=== PATIENT | male | born 1935 | race Caucasian/White ===

== ENCOUNTER 2016-05-08 10:14 | Inpatient (IN) | payer MEDICARE ==
[~2016-05-08] VITALS: Ht 180.3 cm; Wt 96.0 kg
[~2016-05-08 10:14] MED LIST: ADVAIR DISK1 IN; ALAVERT10 MG PO; ALBUTEROL SUL0.083 % IN; ALTOPREV40 MG PO; ASA LOW DOSE81 MG OR; ASPIRIN EC81 MG PO; BACTRIM DS1 TAB OR; BACTRIM DS1 TAB PO; BAYER ASPIRIN E81 MG PO; BENADRYL 50MG C50 MG PO; CIPROFLOXACN500 MG PO; COENZYME Q1010 M1 PO; COMBIVENT IN; COMBIVENT INH; COMBIVENT RESPIMAT IN; COMPRESSOR; COQ-1010 MG PO; ENALAPRIL10 MG OR; ENALAPRIL20 MG PO; GREEN COFFEE B400 MG PO; HYDROCHLOR12.5 MG/CA PO; HYDROCHLORO25 MG/TAB PO; HYDROCHLOROT12.5 MG PO; KEFLEX500 MG PO; LORATADINE OR; LORATADINE10 M1 PO; LOTRISONE TOP; LOVASTATIN10 MG PO; LOVASTATIN20 M1 PO; LOVASTATIN20 MG PO; Levaquin PO; MEDDOSEPAK PO; NAC 600 PO; NEBULIZE1 XX; PERCOCET 5/325M1 TAB PO; PREDNISONE20 MG PO; PRESERVISION AREDS 2; PRESERVISION PO; PROAIR HFA IN; PROBIOTI1 PO; PROVENTIL IN; SINGULAIR 10 MG10 MG PO; SINGULAIR OR; SINGULAIR10 MG PO; VIRTUSSIN A/C 11 SOL PO; ZITHROMAX250 MG PO; ZPAK PO; ZYRTEC10 MG PO; [UNRECOGNIZED DRUG - OTHER] OR; [UNRECOGNIZED DRUG - OTHER] PO; [UNRECOGNIZED DRUG - OTHER] PO; [UNRECOGNIZED DRUG - SUPPLY] XX
[2016-05-08 10:30] VITALS: BP 141/59
--- NOTE | 2016-05-08 10:30 | NUR ---
DIRECT ADMIT PT ARRIVED ON UNIT VIA WC ACCOMPANIED BY SPOUSE, ALERT AND ORIENTED X 3, ORIENTED TO ROOM AND CALL ZHOU, SETTLED IN BED, HUMIDIFIED O2 @ 3L PLACED VIA NC, TELE MONITOR PLANJOÃO, SPOUSE AT BEDSIDE, CALL ZHOU IN REACH.
[2016-05-08 11:21] LABS: URINE BILIRUBIN - DIPSTICK NEGATIVE (NEGATIVE); URINE BLOOD DIPSTICK TRACE-INTACT (NEGATIVE); URINE CLARITY SLIGHT CLOUDY; URINE COLOR YELLOW; URINE GLUCOSE - DIPSTICK NEGATIVE (NEGATIVE); URINE KETONE NEGATIVE (NEGATIVE); URINE LEUK ESTERASE NEGATIVE (Negative); URINE NITRITE - DIPSTICK NEGATIVE (Negative); URINE PROTEIN - DIPSTICK >=300 mg/dL (NEG-TRACE); URINE RBC 0-2 RBC/hpf (0-5); URINE SPECIFIC GRAVITY 1.015; URINE UROBILINOGEN - DIPSTICK 0.2 E.U./dL (0.2)
[2016-05-08 11:22] LABS: URINE MUCUS MODERATE hpf (NONE-FEW)
[2016-05-08 12:31] LABS: HEMATOCRIT 33.2 % (39.0-50.0); HEMOGLOBIN 11.2 g/dl (14.0-18.0); IMMATURE GRANULOCYTES 0.6 % (0.0-1.0); MEAN CORPUSCULAR HGB CONC 33.7 g/L CALC (32.0-36.0); NEUT# 8.03 thou/uL (1.82-7.42); RED BLOOD COUNT 3.73 mill/uL (4.70-6.10); RED CELL DISTRI WIDTH 13.9 % (11.5-15.5)
[2016-05-08 12:58] LABS: CALCIUM 9.5 mg/dL (8.4-10.2); CREATININE 1.6 mg/dL (0.7-1.3); POTASSIUM 4.9 mmol/l (3.5-5.1)
[2016-05-08 16:13] VITALS: BP 150/76
--- NOTE | 2016-05-08 20:08 | NUR ---
BEDSIDE REPORT RECEIVED FROM RENETTA TOLEDO. PT CURRENTLY UP TO CHAIR. C/O SORE THROAT RELATED TO COUGHING. RESPIRATIONS EVEN AND UNLABORED. NEW ORDER FOR CHORASEPTIC URIAH, PT GIVEN ONE AT THIS TIME. AT BEDSIDE. PLAN OF CARE DISCUSSED. ENCOURAGED TO VERBALIZE CONCERNS. STATES UNDERSTANDING. SAFETY MEASURES IN PLACE. CALL LIGHT SYSTEM REVIEWED AND IN REACH.
[2016-05-08 20:44] VITALS: BP 162/88
--- NOTE | 2016-05-09 00:40 | NUR ---
PT SITTING UP IN CHAIR WATCHING TV AT THIS TIME. DENIES PAIN. RESPIRATIONS EVEN AND UNLABORED. BLOOD PRESSURE ELEVATED, WILL CONTINUE TO MONITOR. PT ASYMPTOMATIC. SAFETY MEASURES IN PLACE. CALL LIGHT WITHIN REACH.
[2016-05-09 01:00] VITALS: BP 100/60; BP 160/78
[2016-05-09 04:00] VITALS: BP 174/83
--- NOTE | 2016-05-09 04:16 | NUR ---
PT AWAKE AT THIS TIME UP IN CHAIR WATCHING TV. IV FLUIDS INFUSING ADEQUATELY. SITE APPEARS HEALTHY. PT DENIES PAIN AND SOB. HAS NO REQUESTS AT THIS TIME. SAFETY MEASURES REMAIN IN PLACE. CALL LIGHT WITHIN REACH.
--- NOTE | 2016-05-09 07:00 | NUR ---
BEDSIDE REPORT RECIEVED FROM MANDA BRUCE; PT SITTING UP IN CHAIR AT BEDSIDE; NO S/S OF DISTRESS NOTED; PT DENIES ANY NEEDS AT THIS TIME; IVF INFUSING TO #22 TO LAC; IV SITE APPEARS HEALTHY AT THIS TIME; PT ENCOURAGED TO CALL FOR ANY ASSISTANCE NEEDED; CALL LIGHT WTIHIN REACH; WILL CONTINUE TO MONITOR
[2016-05-09 08:15] VITALS: BP 158/75
[2016-05-09 10:59] VITALS: BP 167/77
[2016-05-09 11:25] LABS: HEMATOCRIT 32.4 % (39.0-50.0); HEMOGLOBIN 11.1 g/dl (14.0-18.0); IMMATURE GRANULOCYTES 0.9 % (0.0-1.0); MEAN CELL VOLUME 87.6 fL CALC (80.0-100.0); MEAN CORPUSCULAR HGB CONC 34.3 g/L CALC (32.0-36.0); NEUT# 11.35 thou/uL (1.82-7.42); RED BLOOD COUNT 3.7 mill/uL (4.70-6.10); RED CELL DISTRI WIDTH 13.6 % (11.5-15.5)
[2016-05-09 11:40] LABS: CALCIUM 9.5 mg/dL (8.4-10.2); CREATININE 1.4 mg/dL (0.7-1.3); POTASSIUM 4.3 mmol/l (3.5-5.1)
--- NOTE | 2016-05-09 11:58 | NUR ---
PT SITTING UP IN CHAIR AT BEDSIDE; NO S/S OF DISTRESS NOTED; IV ROCEPHIN INFUSING TO #22 TO LAC; IV SITE APPEARS HEALTHY; O2 NC IN PLACE; SPOUSE AT BEDSIDE; PT DENIES ANY NEEDS AT THIS TIME; CALL LIGHT WITHIN REACH; WILL CONTINUE TO MONITOR
[2016-05-09 15:45] VITALS: BP 147/71
--- NOTE | 2016-05-09 16:58 | NUR ---
PT SITTING UP IN CHAIR AT BEDSIDE; NO S/S OF DISTRESS NOTED; IVF INFUSING AT PRESCRIBED RATE; PT DENIES ANY NEEDS AT THIS TIME; CALL LIGHT WITHIN REACH; WILL CONTINUE TO MONITOR
--- NOTE | 2016-05-09 19:17 | NUR ---
BEDSIDE REPORT RECEIVED FROM RENETTA ROBERSON. PT SITTING UP IN CHAIR WATCHING TV. DENIES PAIN. RESPIRATIONS EVEN AND UNLABORED. O2 AT 2L VIA NC IN PLACE FOR SOB WITH EXERTION TO BATHROOM. PLAN OF CARE DISCUSSED. ENCOURAGED TO VERBALIZE CONCERNS. PT STATES UNDERSTANDING. SAFETY MEASURES IN PLACE. CALL LIGHT WITHIN REACH.
[2016-05-09 20:10] VITALS: BP 139/69
--- NOTE | 2016-05-10 | NUR ---
PT ASLEEP IN CHAIR AT THIS TIME. NO SIGNS OF PAIN/DISTRESS; RESPIRATIONS EVEN AND UNLABORED WITH O2 IN PLACE AT 2L. SAFEY MEASURES IN PLACE. CALL LIGHT WITHIN REACH.
[2016-05-10 04:00] VITALS: BP 148/78
[2016-05-10 06:00] LABS: ALBUMIN 3.6 g/dL (3.2-5.0); BILIRUBIN, TOTAL 0.2 mg/dL (0.0-1.4); CALCIUM 9.2 mg/dL (8.4-10.2); CREATININE 1.4 mg/dL (0.7-1.3); POTASSIUM 4.7 mmol/l (3.5-5.1); TOTAL PROTEIN 6.2 g/dL (6.3-8.2)
[2016-05-10 06:04] LABS: HEMATOCRIT 29.4 % (39.0-50.0); HEMOGLOBIN 10.2 g/dl (14.0-18.0); IMMATURE GRANULOCYTES 0.9 % (0.0-1.0); MEAN CORPUSCULAR HGB 30.2 pG CALC (26.0-32.0); MEAN CORPUSCULAR HGB CONC 34.7 g/L CALC (32.0-36.0); NEUT# 14.6 thou/uL (1.82-7.42); RED BLOOD COUNT 3.38 mill/uL (4.70-6.10); RED CELL DISTRI WIDTH 13.6 % (11.5-15.5)
--- NOTE | 2016-05-10 07:00 | NUR ---
REPORT RECIEVED FROM MANDA BRUCE; PT RESTING IN CHAIR WITH EYES CLOSED; IVF INFUSING AT PRESCRIBED RATE; NO S/S OF DISTRESS NOTED; CALL LIGHT WITHIN REACH; WILL CONTINUE TO MONITOR
[2016-05-10 08:41] VITALS: BP 141/71
--- NOTE | 2016-05-10 11:39 | NUR ---
PT SITTING UP IN CHAIR AT BEDSIDE; NO S/S OF DISTRESS NOTED; O2 NC IN PLACE; PT DENIES ANY NEEDS AT THIS TIME; IV ROCEPHIN STARTED AT THIS TIME TO #20 TO LAC; IV SITE APPEARS HEALTHY AT THIS TIME; SPOUSE AT BEDSIDE; NO S/S OF DISTRESS NOTED; CALL LIGHT WITHIN REACH; WILL CONTINUE TO MONITOR
[2016-05-10 12:54] VITALS: BP 133/51
[2016-05-10 15:56] VITALS: BP 152/64
[2016-05-10] MEDS ORDERED: HYDROCHLOR12.5 MG/CA PO (17:35)
[2016-05-10] MEDS ORDERED: VENTOLIN HFA IN (17:35)
[2016-05-10] MEDS ORDERED: PROBIOTIC250 MG PO (17:35)
[2016-05-10] MEDS ORDERED: VIRTUSSIN A/C 11 SOL PO (17:35)
[2016-05-10] MEDS ORDERED: Levaquin PO ×2 (17:35)
[2016-05-10] MEDS ORDERED: PREDNISONE20 MG PO ×2 (17:35)
[2016-05-10] MEDS ORDERED: ADVAIR DISK1 IN (17:35)
[2016-05-10] MEDS ORDERED: ENALAPRIL20 MG PO (17:35)
[2016-05-10] MEDS ORDERED: [UNRECOGNIZED DRUG - OTHER] PO (17:35)
[2016-05-10] MEDS ORDERED: PROAIR HFA IN (17:35)
[2016-05-10] MEDS ORDERED: ASPIRIN EC81 MG PO (17:35)
[2016-05-10] MEDS ORDERED: LOVASTATIN20 M1 PO (17:35)
[2016-05-10] MEDS ORDERED: SINGULAIR10 MG PO (17:35)
[2016-05-10] MEDS ORDERED: ALPRAZOLAM0.5 MG PO (17:40)
--- NOTE | 2016-05-10 18:23 | NUR ---
Discharge instructions given. Patient verbalizes understanding of same. Discharged in stable condition via Wheelchair to Home with family. All belongings sent with pt.
== END 2016-05-10 18:10 | disposition home or self-care (01) | DRG 192 ==
LOC: ENPENDDIS → MS2 10:14
PROVIDERS: ADMIT Internal Medicine Geriatric Medicine; ATTEND Internal Medicine Geriatric Medicine
DX: J44.1 Chronic obstructive pulmonary disease with (acute) exacerbation (principal); N18.3 Chronic kidney disease, stage 3 (moderate); I12.9 Hypertensive chronic kidney disease with stage 1 through stage 4 chronic kidney disease, or unspecified chronic kidney disease; I25.10 Atherosclerotic heart disease of native coronary artery without angina pectoris; E78.5 Hyperlipidemia, unspecified; K21.9 Gastro-esophageal reflux disease without esophagitis; M19.90 Unspecified osteoarthritis, unspecified site; F41.9 Anxiety disorder, unspecified; M10.9 Gout, unspecified

== ENCOUNTER 2016-07-31 10:24 | Emergency (ER) | payer MEDICARE ==
[~2016-07-31] VITALS: Ht 180.3 cm; Wt 111.0 kg
[~2016-07-31 10:24] MED LIST changes: +ALPRAZOLAM0.5 MG PO; +PROBIOTIC250 MG PO; +VENTOLIN HFA IN
[2016-07-31] MEDS ORDERED: ZYRTEC10 MG PO (10:51)
[2016-07-31] MEDS ORDERED: LASIX 20 MG TAB20 MG PO (10:52)
[2016-07-31] MEDS ORDERED: KLOR-CON 1010 MEQ PO (10:53)
[2016-07-31] MEDS ORDERED: CARAFATE1 GM PO (10:54)
[2016-07-31] MEDS ORDERED: IPRATROPIU0.5 MG/3 M IN (10:55)
[2016-07-31] MEDS ORDERED: PANTOPRAZOLE SO40 M1 PO (10:55)
[2016-07-31 11:10] VITALS: BP 156/69
== END 2016-07-31 11:10 | disposition home or self-care (01) ==
LOC: ED 10:24
DX: S40.812A Abrasion of left upper arm, initial encounter (principal); S51.812A Laceration without foreign body of left forearm, initial encounter; W22.8XXA Striking against or struck by other objects, initial encounter; Y93.89 Activity, other specified; Y92.007 Garden or yard of unspecified non-institutional (private) residence as the place of occurrence of the external cause

== ENCOUNTER 2016-08-03 08:43 | Emergency (ER) | payer MEDICARE ==
[~2016-08-03] VITALS: Ht 180.3 cm; Wt 100.0 kg
[~2016-08-03 08:43] MED LIST changes: +CARAFATE1 GM PO; +IPRATROPIU0.5 MG/3 M IN; +KLOR-CON 1010 MEQ PO; +LASIX 20 MG TAB20 MG PO; +PANTOPRAZOLE SO40 M1 PO
[2016-08-03 09:10] VITALS: BP 153/71
== END 2016-08-03 09:10 | disposition home or self-care (01) ==
LOC: ED 08:43
DX: S51.802D Unspecified open wound of left forearm, subsequent encounter (principal); X58.XXXD Exposure to other specified factors, subsequent encounter; J44.9 Chronic obstructive pulmonary disease, unspecified; I10 Essential (primary) hypertension; I25.2 Old myocardial infarction; Z95.1 Presence of aortocoronary bypass graft; M19.90 Unspecified osteoarthritis, unspecified site

== ENCOUNTER → 2018-03-26 | Outpatient (REF) | payer MEDICARE ==
[2018-03-26 09:23] LABS: HEMATOCRIT 34.9 % (39.0-50.0); HEMOGLOBIN 11.3 g/dl (14.0-18.0); IMMATURE GRANULOCYTES 0.4 % (0.0-5.0); MEAN CELL VOLUME 95.9 fL CALC (80.0-100.0); MEAN CORPUSCULAR HGB CONC 32.4 g/L CALC (32.0-36.0); NEUT# 4.68 thou/uL (1.82-7.42); RED BLOOD COUNT 3.64 mill/uL (4.70-6.10)
[2018-03-26 09:40] LABS: ALBUMIN 4.2 g/dL (3.2-5.0); BILIRUBIN, TOTAL 0.3 mg/dL (0.0-1.4); CHOLESTEROL HDL RATIO 5.3 (<4.4 (CALC)); POTASSIUM 4.8 mmol/l (3.5-5.1); TOTAL PROTEIN 6.7 g/dL (6.3-8.2)
== END | disposition home or self-care (01) ==
LOC: LAB 06:57
PROVIDERS: ATTEND Internal Medicine Geriatric Medicine
DX: I10 Essential (primary) hypertension (principal); E78.2 Mixed hyperlipidemia

== ENCOUNTER → 2018-04-13 | Outpatient (REF) | payer MEDICARE ==
[2018-04-13 08:17] LABS: ALBUMIN 4.1 g/dL (3.2-5.0); CREATININE 2.8 mg/dL (0.7-1.3); POTASSIUM 4.8 mmol/l (3.5-5.1)
== END | disposition home or self-care (01) ==
LOC: LAB 07:06
PROVIDERS: ATTEND Internal Medicine Nephrology
DX: N18.4 Chronic kidney disease, stage 4 (severe) (principal)

== ENCOUNTER 2018-06-05 08:26 | Emergency (ER) | payer MEDICARE ==
[~2018-06-05] VITALS: Ht 180.3 cm; Wt 100.0 kg
[2018-06-05] MEDS ORDERED: ERYTHROMYCIN O3.5 GM OU (09:44)
[2018-06-05] MEDS ORDERED: ACULAR LS0.4 % OD (09:44)
[2018-06-05 09:55] VITALS: BP 177/83
== END 2018-06-05 09:55 | disposition home or self-care (01) ==
LOC: ED 08:26
DX: H00.012 Hordeolum externum right lower eyelid (principal); I12.9 Hypertensive chronic kidney disease with stage 1 through stage 4 chronic kidney disease, or unspecified chronic kidney disease; N18.4 Chronic kidney disease, stage 4 (severe); J44.9 Chronic obstructive pulmonary disease, unspecified

== ENCOUNTER 2018-09-16 20:28 | Observation (INO) | payer MEDICARE ==
[~2018-09-16] VITALS: Ht 180.3 cm; Wt 102.5 kg
[~2018-09-16 20:28] MED LIST changes: +ACULAR LS0.4 % OD; +ERYTHROMYCIN O3.5 GM OU
--- NOTE | 2018-09-16 20:29 | NUR ---
PT WHEELED TO ROOM # 12 FOR BEDSIDE TRIAGE.
--- NOTE | 2018-09-16 20:45 | NUR ---
TO ROOM. TRIAGED. EKG COMPLETED. AT BEDSIDE. AT BEDSIDE.
--- NOTE | 2018-09-16 21:15 | NUR ---
IV STARTED/LABS DRAWN.
[2018-09-16 21:26] LABS: HEMATOCRIT 29.3 % (39.0-50.0); HEMOGLOBIN 9.6 g/dl (14.0-18.0); IMMATURE GRANULOCYTES 0.3 % (0.0-5.0); MEAN CELL VOLUME 96.1 fL CALC (80.0-100.0); MEAN CORPUSCULAR HGB 31.5 pG CALC (26.0-32.0); MEAN CORPUSCULAR HGB CONC 32.8 g/L CALC (32.0-36.0); NEUT# 5.38 thou/uL (1.82-7.42); RED BLOOD COUNT 3.05 mill/uL (4.70-6.10); RED CELL DISTRI WIDTH 13.2 % (11.5-15.5)
[2018-09-16 21:38] LABS: ALBUMIN 3.9 g/dL (3.2-5.0); ALKALINE PHOSPHATASE 67 u/l (38-126); ANION GAP 15 (6-22 (CALC)); BILIRUBIN, TOTAL 0.2 mg/dL (0.0-1.4); BUN 64 mg/dL (8-23); BUN/CREATININE RATIO 19 (12-20 (CALC)); CARBON DIOXIDE 24 mmol/l (22-30); CHLORIDE 105 mmol/l (95-108); CREATININE 3.3 mg/dL (0.7-1.3); GFR 18 ML/MIN (>=60 (CALC)); GFR FOR AFR.AMER. 22 ML/MIN (>=60 (CALC)); SGOT/AST 16 u/l (19-48); SODIUM 139 mmol/l (137-146); TOTAL PROTEIN 6.4 g/dL (6.3-8.2)
[2018-09-16 21:46] LABS: POTASSIUM 5.3 mmol/l (3.5-5.1)
[2018-09-16] MEDS ORDERED: ASPIRIN81 MG PO (21:49)
[2018-09-16 21:50] LABS: MYOGLOBIN 169 ng/mL (0 - 121)
[2018-09-16] MEDS ORDERED: CLONIDINE0.1 MG PO (21:52)
[2018-09-16] MEDS ORDERED: CARVEDILOL6.25 MG PO (21:58)
[2018-09-16] MEDS ORDERED: AVAPRO150 MG PO (21:59)
[2018-09-16] MEDS ORDERED: VENTOLIN HFA IN (21:59)
[2018-09-16] MEDS ORDERED: MUCINEX600 MG PO (22:00)
[2018-09-16] MEDS ORDERED: NASACORT A55 MCG/ACT IN (22:01)
[2018-09-16] MEDS ORDERED: [UNRECOGNIZED DRUG - OTHER] PO (22:03)
[2018-09-16] MEDS ORDERED: PRESERVISION PO (22:04)
[2018-09-16 23:23] LABS: URINE BILIRUBIN - DIPSTICK NEGATIVE (NEGATIVE); URINE BLOOD DIPSTICK NEGATIVE (NEGATIVE); URINE COLOR YELLOW; URINE GLUCOSE - DIPSTICK NEGATIVE (NEGATIVE); URINE KETONE NEGATIVE (NEGATIVE); URINE LEUK ESTERASE NEGATIVE (NEGATIVE); URINE NITRITE - DIPSTICK NEGATIVE (Negative); URINE PROTEIN - DIPSTICK 100 mg/dL (NEG-TRACE); URINE SPECIFIC GRAVITY 1.015; URINE UROBILINOGEN - DIPSTICK 0.2 E.U./dL (0.2)
[2018-09-16 23:24] LABS: URINE EPITHELIAL CELLS FEW EPI/hpf (0-FEW); URINE MUCUS FEW hpf (NONE-FEW)
--- NOTE | 2018-09-16 23:25 | NUR ---
ADVISED OF HR OF 52....OK TO GIVE.
[2018-09-17] VITALS (8 sets, daily range): BP systolic 133–172; BP diastolic 54–78
--- NOTE | 2018-09-17 00:05 | NUR ---
REPORT TO SESAR, ICU
--- NOTE | 2018-09-17 00:25 | NUR ---
TO ICU OVERFLOW WITH PORTABLE MONITOR. PT FEELS BETTER. AMBULATORY FROM STRETCHER TO BED WITH ASSIST.
--- NOTE | 2018-09-17 00:40 | NUR ---
PT ARRIVED VIA STRETCHER ACCOMPAINED BY ER STAFF. PT ALERT AND ORIENTED. PT AMBULATED FROM STRETCHER TO BED WITH STEADY GAIT. SOB WITH EXCERTION. O2 SAT 96% RA. PT STATES PAIN IN CHEST STILL PRESENT BUT BETTER THAN WHEN HE ARRIVED TO ER. IV SITE APPEARS HEALTHY. SKIN INTACT. DISCUSSED POC AND ORIENTED TO ROOM AND CALL LIGHT SYSTEM. PT VERBALIZED UNDERSTANDING. CALL LIGHT WITHIN REACH. WILL CONTINUE TO MONITOR.
--- NOTE | 2018-09-17 04:04 | NUR ---
PT UP AT BEDSIDE VOIDED 400ML CLEAR YELLOW URINE IN URINAL. PT DENIES ANY PAIN OR DISCOMFORT. NO DISTRESS NOTED. PT REQUEST TO SIT UP ON SIDE OF BED AT THIS TIME. CALL LIGHT WITHIN REACH. WILL CONTINUE TO MONITOR.
[2018-09-17 04:49] LABS: CHOLESTEROL HDL RATIO 5.5 (<4.4 (CALC))
--- NOTE | 2018-09-17 07:30 | NUR ---
PT RESTING IN BED, ASSISTED OUT OF BED, PT USED URINAL. NO SIGNS OF DISTRESS NOTED, RESP EVEN AND UNLABORED.DISCUSSED POC, ASSESSMENT COMPLETED, VOICES NO NEEDS OR COMPLAINTS AT THIS TIME. CALL LIGHT IN REACH,CONTINUE TO MONITOR.
--- NOTE | 2018-09-17 08:16 | NUR ---
PT SITTING IN CHAIR AT BEDSIDE AT BEDSIDE. PT VOICES NO NEEDS OR COMPLAINTS AT THIS TIME. CALL LIGHT IN REACH, CONTINUE TO MONITOR.
--- NOTE | 2018-09-17 09:37 | NUR ---
PT MEDICATED PER EMAR, PT C/O HEADACHE, NITRO PASTE REMOVED. CONTINUE TO MONITOR.
--- NOTE | 2018-09-17 11:00 | NUR ---
PT SITTING IN CHAIR, VOICES NO NEEDS OR COMPLAINTS. CALL LIGHT IN REACH,CONTINUE TO MONITOR.
--- NOTE | 2018-09-17 13:00 | NUR ---
IV site discontinued, cath intact. No edema , no redness, voices no discomfort.
--- NOTE | 2018-09-17 14:00 | NUR ---
Discharge instructions given. Patient verbalizes understanding of same. Discharged in stable condition via Wheelchair to Home with spouse. All belongings sent with pt.
== END 2018-09-17 14:00 | disposition home or self-care (01) ==
LOC: ED 20:28 → ED-I 22:13 → ED 23:48 → ICU 23:49
PROVIDERS: Emergency Medicine; ADMIT Internal Medicine; ATTEND Internal Medicine
DX: R07.9 Chest pain, unspecified (principal); I16.0 Hypertensive urgency; I12.9 Hypertensive chronic kidney disease with stage 1 through stage 4 chronic kidney disease, or unspecified chronic kidney disease; N18.4 Chronic kidney disease, stage 4 (severe); J44.9 Chronic obstructive pulmonary disease, unspecified; I25.10 Atherosclerotic heart disease of native coronary artery without angina pectoris; N40.0 Benign prostatic hyperplasia without lower urinary tract symptoms; Z95.1 Presence of aortocoronary bypass graft; Z87.891 Personal history of nicotine dependence

== ENCOUNTER 2019-09-08 11:55 | Emergency (ER) | payer OTHER, MEDICARE ==
[~2019-09-08] VITALS: Ht 180.3 cm; Wt 93.0 kg
[~2019-09-08 11:55] MED LIST changes: +ASPIRIN81 MG PO; +AVAPRO150 MG PO; +BUMETANIDE1 MG PO; +CARVEDILOL6.25 MG PO; +CLONIDINE0.1 MG PO; +COREG12.5 MG PO; +MUCINEX600 MG PO; +NASACORT A55 MCG/ACT IN; +VENTOLIN H108 MCG/AC IN; +[UNRECOGNIZED DRUG - OTHER] PO
[2019-09-08 12:52] LABS: HEMATOCRIT 35.3 % (39.0-50.0); HEMOGLOBIN 10.7 g/dl (14.0-18.0); IMMATURE GRANULOCYTES 0.3 % (0.0-5.0); MEAN CELL VOLUME 99.7 fL CALC (80.0-100.0); MEAN CORPUSCULAR HGB 30.2 pG CALC (26.0-32.0); MEAN CORPUSCULAR HGB CONC 30.3 g/dL CAL (32.0-36.0); NEUT# 3.88 thou/uL (1.82-7.42); RED BLOOD COUNT 3.54 mill/uL (4.70-6.10); RED CELL DISTRI WIDTH 15.7 % (11.5-15.5)
[2019-09-08 13:06] LABS: ALBUMIN 3.8 g/dL (3.2-5.0); ALKALINE PHOSPHATASE 81 u/l (38-126); BILIRUBIN, TOTAL 0.3 mg/dL (0.0-1.4); BUN 76 mg/dL (8-23); BUN/CREATININE RATIO 22 (12-20 (CALC)); CARBON DIOXIDE 17 mmol/l (22-30); CHLORIDE 109 mmol/l (95-108); CREATININE 3.4 mg/dL (0.7-1.3); GFR 17 ML/MIN (>=60 (CALC)); GFR FOR AFR.AMER. 21 ML/MIN (>=60 (CALC)); LIPASE 254 u/l (23-300); SGOT/AST 24 u/l (19-48); SODIUM 135 mmol/l (137-146); TOTAL PROTEIN 6.2 g/dL (6.3-8.2)
[2019-09-08 13:07] LABS: ANION GAP 15 (6-22 (CALC)); POTASSIUM 5.7 mmol/l (3.5-5.1)
[2019-09-08 14:01] LABS: URINE BILIRUBIN - DIPSTICK NEGATIVE (NEGATIVE); URINE BLOOD DIPSTICK TRACE-INTACT (NEGATIVE); URINE COLOR YELLOW; URINE EPITHELIAL CELLS MODERATE EPI/hpf (0-FEW); URINE GLUCOSE - DIPSTICK NEGATIVE (NEGATIVE); URINE KETONE NEGATIVE (NEGATIVE); URINE LEUK ESTERASE NEGATIVE (NEGATIVE); URINE MUCUS MODERATE hpf (NONE-FEW); URINE NITRITE - DIPSTICK NEGATIVE (Negative); URINE PROTEIN - DIPSTICK 100 mg/dL (NEG-TRACE); URINE RBC 0-2 RBC/hpf (0-5); URINE UROBILINOGEN - DIPSTICK 0.2 E.U./dL (0.2)
[2019-09-08] MEDS ORDERED: KAYEXALATE15 GM/60 M PO (14:42)
[2019-09-08 15:11] VITALS: BP 182/75
[2019-09-09] MEDS ORDERED: ROSUVASTATIN CA20 MG PO (15:44)
[2019-09-09] MEDS ORDERED: WIXELA INHUB 251 AER PO (15:44)
[2019-09-09] MEDS ORDERED: MONTELUKAST SOD10 MG PO (15:45)
== END 2019-09-08 15:11 | disposition home or self-care (01) | DRG 392 ==
LOC: ED 11:55
PROVIDERS: Family Medicine
DX: R10.32 Left lower quadrant pain (principal); S00.01XA Abrasion of scalp, initial encounter; S00.81XA Abrasion of other part of head, initial encounter; M54.2 Cervicalgia; M54.6 Pain in thoracic spine; E87.5 Hyperkalemia; I12.9 Hypertensive chronic kidney disease with stage 1 through stage 4 chronic kidney disease, or unspecified chronic kidney disease; N18.3 Chronic kidney disease, stage 3 (moderate); J44.9 Chronic obstructive pulmonary disease, unspecified; V44.5XXA Car driver injured in collision with heavy transport vehicle or bus in traffic accident, initial encounter; Z95.1 Presence of aortocoronary bypass graft

== ENCOUNTER 2019-09-09 15:06 | Emergency (ER) | payer OTHER, MEDICARE ==
[~2019-09-09] VITALS: Ht 180.3 cm; Wt 93.0 kg
[~2019-09-09 15:06] MED LIST changes: +KAYEXALATE15 GM/60 M PO
[2019-09-09] MEDS ORDERED: WIXELA INHUB 251 AER PO (15:44)
[2019-09-09] MEDS ORDERED: ROSUVASTATIN CA20 MG PO (15:44)
[2019-09-09] MEDS ORDERED: MONTELUKAST SOD10 MG PO (15:45)
[2019-09-09 16:02] LABS: CREATININE 3.5 mg/dL (0.7-1.3)
[2019-09-09 16:15] LABS: POTASSIUM 5.5 mmol/l (3.5-5.1)
[2019-09-09 17:25] VITALS: BP 193/82
== END 2019-09-09 17:25 | disposition home or self-care (01) | DRG 641 ==
LOC: ED 15:06
PROVIDERS: Student in an Organized Health Care Education/Training Program
DX: E87.5 Hyperkalemia (principal); I12.9 Hypertensive chronic kidney disease with stage 1 through stage 4 chronic kidney disease, or unspecified chronic kidney disease; N18.3 Chronic kidney disease, stage 3 (moderate); J44.9 Chronic obstructive pulmonary disease, unspecified; Z95.1 Presence of aortocoronary bypass graft

== ENCOUNTER 2020-06-16 08:53 | Emergency (ER) | payer MEDICARE ==
[~2020-06-16 08:53] MED LIST changes: +MONTELUKAST SOD10 MG PO; +ROSUVASTATIN CA20 MG PO; +WIXELA INHUB 251 AER PO
[2020-06-16 09:48] LABS: HEMATOCRIT 31.6 % (39.0-50.0); HEMOGLOBIN 9.9 g/dl (14.0-18.0); IMMATURE GRANULOCYTES 0.4 % (0.0-5.0); MEAN CELL VOLUME 97.2 fL CALC (80.0-100.0); MEAN CORPUSCULAR HGB 30.5 pG CALC (26.0-32.0); MEAN CORPUSCULAR HGB CONC 31.3 g/dL CAL (32.0-36.0); NEUT# 4.97 thou/uL (1.82-7.42); RED BLOOD COUNT 3.25 mill/uL (4.70-6.10); RED CELL DISTRI WIDTH 14.4 % (11.5-15.5)
[2020-06-16 10:06] LABS: ALBUMIN 3.7 g/dL (3.2-5.0); ALKALINE PHOSPHATASE 65 u/l (38-126); ANION GAP 15 (6-22 (CALC)); CARBON DIOXIDE 21 mmol/l (22-30); CHLORIDE 105 mmol/l (95-108); CREATININE 4.3 mg/dL (0.7-1.3); GFR 13 ML/MIN (>=60 (CALC)); GFR FOR AFR.AMER. 16 ML/MIN (>=60 (CALC)); POTASSIUM 4.1 mmol/l (3.5-5.1); SGOT/AST 19 u/l (19-48); SODIUM 137 mmol/l (137-146); TOTAL PROTEIN 6.7 g/dL (6.3-8.2)
[2020-06-16 10:10] LABS: INTERNATIONAL NORMALIZED RATIO 1.1 RATIO (0.7-1.3); PROTHROMBIN TIME 10.8 SECONDS (9.0-12.5)
[2020-06-16 10:11] LABS: BILIRUBIN, TOTAL 0.5 mg/dL (0.0-1.4); BUN 80 mg/dL (8-23); BUN/CREATININE RATIO 19 (12-20 (CALC))
[2020-06-16 10:37] LABS: TSH, 3RD GENERATION 1.89 uIU/mL (0.47 - 4.68)
[2020-06-16 11:28] LABS: URINE BILIRUBIN - DIPSTICK NEGATIVE (NEGATIVE); URINE BLOOD DIPSTICK NEGATIVE (NEGATIVE); URINE COLOR YELLOW; URINE GLUCOSE - DIPSTICK NEGATIVE (NEGATIVE); URINE KETONE NEGATIVE (NEGATIVE); URINE LEUK ESTERASE TRACE (NEGATIVE); URINE PH 5.5 (4.5-8.0); URINE PROTEIN - DIPSTICK >=300 mg/dL (NEG-TRACE); URINE SPECIFIC GRAVITY >=1.030; URINE UROBILINOGEN - DIPSTICK 0.2 E.U./dL (0.2)
[2020-06-16 11:30] LABS: URINE NITRITE - DIPSTICK NEGATIVE (Negative)
[2020-06-16 11:37] LABS: URINE RBC 0-2 RBC/hpf (0-5)
[2020-06-16] MEDS ORDERED: ALTOPREV20 MG PO (11:51)
[2020-06-16] MEDS ORDERED: ADVAIR DISK1 INH (11:52)
[2020-06-16] MEDS ORDERED: HYDRALAZINE10 M2 PO (11:52)
[2020-06-16] MEDS ORDERED: MUCINEX600 MG PO (11:53)
[2020-06-16] MEDS ORDERED: NASACORT A55 MCG/ACT (11:54)
[2020-06-16] MEDS ORDERED: SODIUM BICARBI650 MG PO (11:54)
[2020-06-16] MEDS ORDERED: PRESERVISION PO (11:55)
[2020-06-16 12:06] VITALS: BP 166/71
== END 2020-06-16 12:14 | disposition home or self-care (01) ==
LOC: ED 08:53
PROVIDERS: Family Medicine
DX: R53.1 Weakness (principal); I12.9 Hypertensive chronic kidney disease with stage 1 through stage 4 chronic kidney disease, or unspecified chronic kidney disease; N18.4 Chronic kidney disease, stage 4 (severe); J44.9 Chronic obstructive pulmonary disease, unspecified; Z95.1 Presence of aortocoronary bypass graft; Z20.822 Contact with and (suspected) exposure to COVID-19

== ENCOUNTER 2020-12-24 11:23 | Emergency (ER) | payer MEDICARE ==
[~2020-12-24] VITALS: Ht 180.3 cm; Wt 90.6 kg
[~2020-12-24 11:23] MED LIST changes: +ADVAIR DISK1 INH; +ALTOPREV20 MG PO; +HYDRALAZINE10 M2 PO; +NASACORT A55 MCG/ACT; +SODIUM BICARBI650 MG PO
[2020-12-24 12:13] LABS: HEMATOCRIT 32.6 % (39.0-50.0); HEMOGLOBIN 9.9 g/dl (14.0-18.0); IMMATURE GRANULOCYTES 0.7 % (0.0-5.0); MEAN CELL VOLUME 100.3 fL CALC (80.0-100.0); MEAN CORPUSCULAR HGB 30.5 pG CALC (26.0-32.0); MEAN CORPUSCULAR HGB CONC 30.4 g/dL CAL (32.0-36.0); NEUT# 4.39 thou/uL (1.82-7.42); RED BLOOD COUNT 3.25 mill/uL (4.70-6.10); RED CELL DISTRI WIDTH 16.1 % (11.5-15.5)
[2020-12-24] MEDS ORDERED: RENAGEL 800MG800 MG PO (13:11)
[2020-12-24] MEDS ORDERED: DOXYCYCL HYC100 MG PO (13:13)
[2020-12-24] MEDS ORDERED: CALCITRIOL0.25 MC1 PO (13:18)
[2020-12-24 14:14] LABS: BILIRUBIN, TOTAL 0.5 mg/dL (0.0-1.4); TOTAL PROTEIN 7.1 g/dL (6.3-8.2)
[2020-12-24 14:20] LABS: CREATININE 5.9 mg/dL (0.7-1.3); POTASSIUM 5.7 mmol/l (3.5-5.1)
[2020-12-24 18:42] VITALS: BP 146/68
== END 2020-12-24 18:30 | disposition short-term general hospital (02) ==
LOC: ED 11:23
PROVIDERS: Family Medicine
DX: I13.0 Hypertensive heart and chronic kidney disease with heart failure and stage 1 through stage 4 chronic kidney disease, or unspecified chronic kidney disease (principal); I50.9 Heart failure, unspecified; N18.4 Chronic kidney disease, stage 4 (severe); J45.901 Unspecified asthma with (acute) exacerbation; J44.9 Chronic obstructive pulmonary disease, unspecified; E78.00 Pure hypercholesterolemia, unspecified; Z95.1 Presence of aortocoronary bypass graft; Z20.822 Contact with and (suspected) exposure to COVID-19